=== PATIENT | male | born 1960 | race Two or more races ===

== ENCOUNTER → 2017-01-05 | Outpatient (CLI) | payer BC | LOC: CIMAGING 14:48 | PROVIDERS: ATTEND Family Medicine | DX: R22.1 Localized swelling, mass and lump, neck (principal) | CPT/HCPCS: 76536-PO ==

== ENCOUNTER → 2017-01-12 | Outpatient (CLI) | payer BC ==
[~2017-01-12] MED LIST: LIDOCAINE 1% 300 MG/30 ML SDV ONE
== END ==
LOC: FIMAGING 12:17
PROVIDERS: ATTEND Family Medicine
PROC: 0G9K3ZX Drainage of Thyroid Gland, Percutaneous Approach, Diagnostic (ICD-10-PCS; principal; 2017-01-12)
DX: E04.1 Nontoxic single thyroid nodule (principal)

== ENCOUNTER → 2017-05-11 | Outpatient (CLI) | payer BC | LOC: CIMAGING 09:40 | PROVIDERS: ATTEND Family Medicine | DX: J43.9 Emphysema, unspecified (principal) | CPT/HCPCS: 71020-PO ==